=== PATIENT | female | born 1995 | race Caucasian/White ===

== ENCOUNTER 2018-04-03 21:07 | Emergency (ER) | payer MEDICAID ==
[~2018-04-03] VITALS: Ht 157.5 cm; Wt 72.6 kg
[2018-04-03 21:29] VITALS: BP 140/86
[2018-04-04] MEDS ORDERED: BACLOFEN 10 MG TAB PO ONE (00:30)
[2018-04-04] MEDS ORDERED: HYDROcodone-ACET 10/325MG TAB PO ONE (00:30)
== END 2018-04-04 03:27 | disposition home or self-care (01) ==
LOC: ER 21:07 → EDBD 21:07 → ER 04-04 03:27
DX: S13.4XXA Sprain of ligaments of cervical spine, initial encounter (principal); M62.838 Other muscle spasm; M25.521 Pain in right elbow; M54.5 Low back pain; V49.49XA Driver injured in collision with other motor vehicles in traffic accident, initial encounter; Y93.89 Activity, other specified; Y99.8 Other external cause status; Y92.488 Other paved roadways as the place of occurrence of the external cause
CPT/HCPCS: 72125; 73080; 74176